=== PATIENT | male | born 1970 | race Two or more races ===

== ENCOUNTER 2025-08-13 11:18 | Outpatient (CLI) | payer MEDICAID ==
[2025-08-13 11:50] LABS: Hematocrit 35.2 % (41.0-53.0); Hemoglobin 12.2 g/dL (13.5-17.5); Mean Corpuscular Hemoglobin 35.8 pg (28.0-32.0); Mean Corpuscular Volume 103.1 fL (80.0-100.0); Nucleated Red Blood Cells % 0.3 %
[2025-08-13 12:50] LABS: Alanine Aminotransferase 32 U/L (7-40); Albumin 4.5 g/dL (3.2-4.8); Alkaline Phosphatase 50 U/L (46-116); Anion Gap 7 (5-15); BUN/Creatinine Ratio 7.8 (10.0-20.0); Blood Urea Nitrogen 10 mg/dL (9-23); Calcium 9.4 mg/dL (8.7-10.4); Carbon Dioxide 30 mmol/L (20-31); Glucose 85 mg/dL (74-106); Potassium 4.1 mmol/L (3.5-5.1); Triglycerides 99 mg/dL (< 150)
[2025-08-13 12:51] LABS: Bilirubin, Total 0.9 mg/dL (0.2-1.0)
[2025-08-13 12:55] LABS: Chloride 89 mmol/L (98-107); Cholesterol 498 mg/dL (< 200); HDL Cholesterol 85 mg/dL (40-59); Sodium 126 mmol/L (136-145); Total Protein 8.8 g/dL (5.7-8.2)
[2025-08-13 15:54] LABS: Urine Protein, UAD Negative (Negative)
== END 2025-08-13 17:00 | disposition home or self-care (01) ==
LOC: LAB 11:18
PROVIDERS: ATTEND Nurse Practitioner Family
DX: E03.9 Hypothyroidism, unspecified (principal); E78.5 Hyperlipidemia, unspecified; E55.9 Vitamin D deficiency, unspecified; N39.0 Urinary tract infection, site not specified; R35.1 Nocturia; R73.9 Hyperglycemia, unspecified; Z00.01 Encounter for general adult medical examination with abnormal findings
CPT/HCPCS: 36415; 80053; 80061; 81003; 82043; 82306; 83036; 84153; 84443; 85025; 87086